=== PATIENT | female | born 1980 | race American Indian/Alaskan Native ===

== ENCOUNTER 2017-03-31 01:58 | Emergency (ER) | payer SELFPAY ==
[2017-03-31 02:12] VITALS: BP 126/94
== END 2017-03-31 03:45 | disposition left against medical advice (07) ==
LOC: ED 01:58
DX: K08.89 Other specified disorders of teeth and supporting structures (principal); Z53.21 Procedure and treatment not carried out due to patient leaving prior to being seen by health care provider
CPT/HCPCS: 93005; 93010